=== PATIENT | female | born 1960 ===

== ENCOUNTER 2017-02-07 21:04 | Emergency (ER) | payer BC, MEDICAID ==
[2017-02-07 21:50] VITALS: BP 113/75; PULSE 66; RESP 18; TEMP 98; O2SAT 98
--- NOTE | 2017-02-07 22:31 | ED PDOC ---
HPI: Back Time Seen by Provider: 02/07/17 21:56 Chief Complaint (Nursing): Abdominal Pain Chief Complaint (Provider): back pain History Per: Patient History/Exam Limitations: no limitations Onset/Duration Of Symptoms: Days (2) Current Symptoms Are (Timing): Still Present Exacerbating Factor(s): Turning, Movement Additional History Per: Patient Additional Complaint(s): 56 y/o female presents with right upper back/rib pain x 2 days. Denies fever, chest pain, shortness of breath, palpitations, abdominal pain, trauma to area. Ibuprofen taken noon. 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 - Family History Family History: States: Unknown Family Hx - Social History Current smoker - smoking cessation education provided: No - Home Medications Home Medications: Ambulatory Orders Medication Instructions Recorded Cyclobenzaprine [Cyclobenzaprine 10 mg PO HS #5 tab 02/08/17 HCl] Naproxen [Naprosyn] 500 mg PO Q12 PRN #20 tablet 02/08/17 - Allergies Allergies/Adverse Reactions: Allergies Allergy/AdvReac Type Severity Reaction Status Date / Time No Known Allergies Allergy Verified 02/07/17 21:12 Review of Systems ROS Statement: Except As Marked, All Systems Reviewed And Found Negative Musculoskeletal: Positive for: Back Pain (right upper) Physical Exam - Reviewed Nursing Documentation Reviewed: Yes Vital Signs Reviewed: Yes - Physical Exam Appears: Positive for: Well, Non-toxic, No Acute Distress Head Exam: Positive for: ATRAUMATIC, NORMAL INSPECTION, NORMOCEPHALIC Skin: Positive for: Normal Color Eye Exam: Positive for: Normal appearance ENT: Positive for: Normal ENT Inspection Cardiovascular/Chest: Positive for: Regular Rate, Rhythm Respiratory: Positive for: Normal Breath Sounds Gastrointestinal/Abdominal: Positive for: Normal Exam Back: Positive for: Other (tender to palpate right lateral back/ribs radiating to flank; no ecchymosis, flail chest noted) Extremity: Positive for: Normal ROM Neurologic/Psych: Positive for: Alert, Oriented - Laboratory Results Result Diagrams: 02/07/17 22:35 02/07/17 22:35 - ECG ECG: Positive for: Viewed By Me (reviewed by ED attending) ECG Rhythm: Positive for: Sinus Bradycardia O2 Sat by Pulse Oximetry: 98 - Radiology X-Ray: Viewed By Me X-Ray Interpretation: No Acute Disease - Progress ED Course And Treament: labs, ekg, chest xray, IV toradol Patient educated on findings, discharged with rx Naproxen, flexeril. Advised follow up PMD 2-3 days. Return to ED for worsening/concerning symptoms. Disposition - Clinical Impression Clinical Impression: Upper back pain on right side - Patient ED Disposition Is Patient to be Admitted: No Counseled Patient/Family Regarding: Studies Performed, Diagnosis, Need For Followup, Rx Given - Disposition Disposition: Routine/Home Disposition Time: 00:09 Condition: IMPROVED Prescriptions: Cyclobenzaprine [Cyclobenzaprine HCl] 10 mg PO HS #5 tab Naproxen [Naprosyn] 500 mg PO Q12 PRN #20 tablet PRN Reason: Pain, Moderate (4-7) Instructions: Musculoskeletal Pain (ED) Print Language: TAJIK
[2017-02-07 22:54] LABS: ALB/GLOB RATIO 1.3 (1.0-2.1); ALKALINE PHOSPHATASE 73 U/L (38-126); ALT/SGPT 41 U/L (9-52); AST/SGOT 32 U/L (14-36); BILIRUBIN,TOTAL 0.5 mg/dl (0.2-1.3); BLOOD UREA NITROGEN 15 mg/dl (7-17); CALCIUM 9.1 mg/dL (8.4-10.2); CARBON DIOXIDE 27 mmol/L (22-30); CHLORIDE 104 mmol/L (98-107); GFR AFRICAN-AMERICAN > 60; GLUCOSE,RANDOM 98 mg/dL (65-105); SODIUM 140 mmol/l (132-148); TOTAL PROTEIN 7.6 G/DL (6.3-8.2)
[2017-02-07 23:00] LABS: BASO # 0.1 K/uL (0.0-0.2); BASO % 0.9 % (0.0-2.0); EOS # 0.2 K/uL (0.0-0.7); EOS % 2.8 % (0.0-4.0); HEMATOCRIT 39.3 % (34.0-47.0); LYMPH % 29.9 % (20.0-40.0); MEAN CORPUSCULAR HEMOGLOBIN 29.5 pg (27.0-31.0); MEAN CORPUSCULAR HGB CONC 33.6 g/dL (33.0-37.0); MEAN PLATELET VOLUME 9.2 fl (7.2-11.7); MONO # 0.5 K/uL (0.0-0.8); MONO % 7.4 % (0.0-10.0); RED CELL DISTRIBUTION WIDTH 13.3 % (11.5-14.5); WHITE BLOOD COUNT 6.9 K/uL (4.8-10.8)
--- NOTE | 2017-02-08 10:15 | CARD ---
APPROVED REPORT EKG Measurement Heart [id number] <Conclusion> Sinus bradycardia Otherwise normal ECG
--- NOTE | 2017-02-08 12:14 | RAD ---
HISTORY: Pain. No history of recent/ related trauma provided COMPARISON: No prior. TECHNIQUE: Chest PA and lateral FINDINGS: LUNGS: No active pulmonary disease. PLEURA: No significant pleural effusion identified. No pneumothorax apparent. CARDIOVASCULAR: Normal. OSSEOUS STRUCTURES: Postoperative findings related to posterior lateral right 6th rib resection. VISUALIZED UPPER ABDOMEN: Normal. OTHER FINDINGS: None. IMPRESSION: No active disease.
== END 2017-02-08 00:32 | disposition short-term general hospital (02) ==
LOC: H.ER 21:04
DX: M54.9 Dorsalgia, unspecified (principal); R10.9 Unspecified abdominal pain

== ENCOUNTER 2017-02-10 11:50 | Emergency (ER) | payer MEDICAID ==
[2017-02-10 12:01] VITALS: RESP 18
--- NOTE | 2017-02-10 12:15 | ED PDOC ---
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 The rash was preceded by general pain to same area. Patient states she was seen 3 days ago in ED for this pain, and was diagnosed with muscle strain to back. There was no rash on her skin at time of that visit. She has been taking naprosyn and flexeril which has helped only minimally with the pain. She denies fever or chills. No meds taken today for pain relief. Past Medical History Reviewed: Historical Data, Nursing Documentation, Vital Signs Vital Signs: Last Vital Signs Temp 97.6 F 02/10/17 11:58 Pulse 78 02/10/17 11:58 Resp 18 02/10/17 11:58 BP 121/72 02/10/17 11:58 Pulse Ox 97 02/10/17 12:15 - Medical History PMH: Gastritis - Surgical History Other surgeries: mass removed from abdomen - over 20 years ago, patient is not sure of location of mass - Family History Family History: States: No Known Family Hx - Living Arrangements Living Arrangements: With Family - Social History Current smoker - smoking cessation education provided: No Alcohol: None Drugs: Denies - Home Medications Home Medications: Ambulatory Orders Medication Instructions Recorded Cyclobenzaprine [Cyclobenzaprine 10 mg PO HS #5 tab 02/08/17 HCl] Naproxen [Naprosyn] 500 mg PO Q12 PRN #20 tablet 02/08/17 traMADol [Ultram] 50 mg PO TID PRN #15 tab 02/10/17 valACYclovir [Valtrex] 1 gm PO TID #21 tab 02/10/17 - Allergies Allergies/Adverse Reactions: Allergies Allergy/AdvReac Type Severity Reaction Status Date / Time No Known Allergies Allergy Verified 02/07/17 21:12 Review of Systems ROS Statement: Except As Marked, All Systems Reviewed And Found Negative Constitutional: Negative for: Fever Cardiovascular: Negative for: Chest Pain Gastrointestinal: Negative for: Vomiting Skin: Positive for: Rash Physical Exam - Reviewed Nursing Documentation Reviewed: Yes Vital Signs Reviewed: Yes - Physical Exam Appears: Positive for: Well, Non-toxic, No Acute Distress Skin: Positive for: Rash (vesicular rash noted to left flank region, appearance consistent with shingles, no acute suppurative infection noted) Cardiovascular/Chest: Positive for: Regular Rate, Rhythm Respiratory: Positive for: Normal Breath Sounds Back: Positive for: L CVA Tenderness (due to rash). Negative for: R CVA Tenderness, Vertebral Tenderness Neurologic/Psych: Positive for: Alert, Oriented - ECG O2 Sat by Pulse Oximetry: 97 Pulse Ox Interpretation: Normal Medical Decision Making Medical Decision Making: Impression: Shingles Plan: IM toradol Rx valtrex and tramadol given. Patient was instructed to keep area clean and dry. Advised PMD follow up in 2-3 days. Disposition - Clinical Impression Clinical Impression: Shingles - Patient ED Disposition Is Patient to be Admitted: No Counseled Patient/Family Regarding: Diagnosis, Need For Followup, Rx Given - Disposition Referrals: Triston Dinh MD [Family Provider] - Disposition: Routine/Home Disposition Time: 13:03 Condition: STABLE Additional Instructions: TAKE VALTREX DIRECTED NAPROSYN FOR MILD PAIN, TRAMADOL FOR MORE SEVERE PAIN FOLLOW UP WITH PRIMARY CARE DOCTOR IN 2-3 DAYS. Prescriptions: traMADol [Ultram] 50 mg PO TID PRN #15 tab PRN Reason: Pain, Moderate (4-7) valACYclovir [Valtrex] 1 gm PO TID #21 tab Instructions: Shingles (ED) Forms: [employer] ([place]an) Print Language: OCCITAN
[2017-02-10 13:35] VITALS: BP 128/90; PULSE 76; TEMP 96.7; O2SAT 98
== END 2017-02-10 13:35 | disposition home or self-care (01) ==
LOC: H.ER 11:50
DX: B02.9 Zoster without complications (principal)